=== PATIENT | female | born 1945 | race Caucasian/White ===

== ENCOUNTER → 2016-10-18 | Outpatient (CLI) | payer OTHER ==
[~2016-10-18] MED LIST: ADVAIR 500/501 DISK IH; ALENDRONATE SOD70 MG PO; CALCITRIOL0.25 MCG PO; HYDRODIURIL,ORE50 MG PO; K-DUR20 MEQ PO; LOPRESSOR50 MG PO; OMEPRAZOLE40 MG PO; PLAVIX75 MG PO; SIMVASTATIN40 MG PO; ULTRAM50 MG PO; ZOFRAN ODT4 MG PO
== END | disposition home or self-care (01) ==
LOC: NUC 08:32
DX: M51.36 Other intervertebral disc degeneration, lumbar region (principal); M41.26 Other idiopathic scoliosis, lumbar region; R29.898 Other symptoms and signs involving the musculoskeletal system
CPT/HCPCS: 78306; A9503

== ENCOUNTER → 2018-05-07 | Outpatient (CLI) | payer MEDICARE, OTHER | END | disposition home or self-care (01) | LOC: CDC 14:32 | DX: Z01.810 Encounter for preprocedural cardiovascular examination (principal); G56.01 Carpal tunnel syndrome, right upper limb | CPT/HCPCS: 93000 ==